=== PATIENT | female | born 1975 | race Asian ===

== ENCOUNTER → 2019-10-06 | Outpatient (CLI) | payer BC ==
[~2019-10-06] MED LIST: ESOM40CA PO
[2019-10-06 13:42] LABS: BASO # 0.1 x10^3/uL (0.0-0.2); BASO % 1 % (0-3); EOS # 0.3 x10^3/uL (0.0-0.7); EOS % 5 % (0-3); HEMATOCRIT 40.1 % (36.0-47.0); HEMOGLOBIN 13.9 g/dL (12.0-15.5); LYMPH # 1.6 x10^3/uL (1.0-4.8); LYMPH % 25 % (24-48); MEAN CORPUSCULAR HEMOGLOBIN 31 pg (25-35); MEAN CORPUSCULAR HGB CONC 35 g/dL (31-37); MEAN CORPUSCULAR VOLUME 88 fL (79-100); MONO # 0.4 x10^3/uL (0.0-1.1); MONO % 6 % (0-9); NEUT # 4.1 x10^3/uL (1.8-7.7); NEUT % 63 % (31-73); PLATELET COUNT 273 x10^3/uL (140-400); RED BLOOD COUNT 4.54 x10^6/uL (3.50-5.40); RED CELL DISTRIBUTION WIDTH 12.4 % (11.5-14.5); WHITE BLOOD COUNT 6.5 x10^3/uL (4.0-11.0)
[2019-10-06 13:45] LABS: BILIRUBIN,URINE NEGATIVE (NEG); CLARITY,URINE CLOUDY; COLOR,URINE YELLOW; NITRITE,URINE NEGATIVE (NEG); PH,URINE 7.5; PROTEIN,URINE NEGATIVE (NEG-TRACE); UROBILINOGEN,URINE 0.2 mg/dL (0.2 mg/dL)
[2019-10-06 14:00] LABS: AMORPHOUS SEDIMENT,UR PRESENT /HPF; BACTERIA,URINE 0 /HPF (0-FEW); WBC,URINE 0 /HPF (0-4)
[2019-10-06 14:10] LABS: ALBUMIN 3.3 g/dL (3.4-5.0); ALBUMIN/GLOBULIN RATIO 0.8 (1.0-1.7); CALCIUM 8.8 mg/dL (8.5-10.1); CREATININE 0.8 mg/dL (0.6-1.0); GFR 77.2; TOTAL BILIRUBIN 0.5 mg/dL (0.2-1.0); TOTAL PROTEIN 7.5 g/dL (6.4-8.2)
== END | disposition home or self-care (01) ==
LOC: SURGPAT 13:05
PROVIDERS: ATTEND Obstetrics & Gynecology
DX: Z01.818 Encounter for other preprocedural examination (principal); N81.10 Cystocele, unspecified
CPT/HCPCS: 36415; 80053; 81001; 85025

== ENCOUNTER 2019-10-12 06:48 | Observation (INO) | payer BC ==
[2019-10-12] VITALS (9 sets, daily range): BP systolic 99–111; BP diastolic 59–70
[~2019-10-12] VITALS: Ht 154.9 cm; Wt 61.2 kg
[2019-10-12] MEDS ORDERED: MORPHINE SULFATE 2 MG/ML VIAL. IV PRN ×2 (07:00→11:30)
[2019-10-12] MEDS ORDERED: IV RINGERS,LACTATED 1000ML 1,000 ML IV SCH (07:00)
[2019-10-12] MEDS ORDERED: fentaNYL PF VIAL 100 MCG/2 ML VIAL IV PRN ×2 (07:00)
[2019-10-12] MEDS ORDERED: HYDROmorphone 2 MG/ML VIAL IV PRN (07:00)
[2019-10-12] MEDS ORDERED: PROCHLORPERAZINE 10 MG/2 ML VIAL. IV PRN (07:00)
[2019-10-12] MEDS ORDERED: ONDANSETRON PF 4 MG/2 ML VIAL. IV PRN ×2 (07:00→11:30)
[2019-10-12] MEDS ORDERED: ESOM40CA PO (07:15)
[2019-10-12] MEDS ORDERED: SEVOFLURANE 61 TO 120 MINUTES. IH ONE (07:25)
[2019-10-12] MEDS ORDERED: PROPOFOL 20 ML IV ONE (07:25)
[2019-10-12] MEDS ORDERED: DEXAMETHASONE SOD PHOS 4 MG/ML VIAL ONE (07:25)
[2019-10-12] MEDS ORDERED: KETOROLAC 30 MG/ML VIAL. ONE (07:25)
[2019-10-12] MEDS ORDERED: GLYCOPYRROLATE 1 MG/5 ML VIAL. ONE ×2 (07:25→07:26)
[2019-10-12] MEDS ORDERED: ONDANSETRON PF 4 MG/2 ML VIAL. ONE (07:25)
[2019-10-12] MEDS ORDERED: LIDOCAINE 2% PF 5 ML VIAL. ONE (07:25)
[2019-10-12] MEDS ORDERED: ROCURONIUM 50 MG/5 ML VIAL. ONE (07:26)
[2019-10-12] MEDS ORDERED: NEOSTIGMINE METHYLSULFATE 5 MG/5 ML SYRINGE. ONE (07:26)
[2019-10-12] MEDS ORDERED: fentaNYL PF VIAL 100 MCG/2 ML VIAL ONE (07:32)
[2019-10-12] MEDS ORDERED: KETAMINE HCL IN NACL, ISO-OSM 50 MG/5 ML SYRINGE ONE (07:32)
[2019-10-12] MEDS ORDERED: BUPIVACAINE-EPI 0.25%-1:200000 MPF 30 ML VIAL. ONE ×3 (07:59→08:00)
[2019-10-12] MEDS ORDERED: ESTROGENS, CONJ VAGINAL CREAM 30GM TUBE. ONE (07:59)
[2019-10-12] MEDS ORDERED: INDIGOTINDISULFONATE SODIUM 40 MG/5 ML AMPUL. ONE (07:59)
[2019-10-12] MEDS ORDERED: ceFAZolin 2GM PREMIX 2 GM/50 ML BAG IV ONE (08:00)
[2019-10-12] MEDS ORDERED: PHENYLEPHRINE in 0.9% NACL PF 1 MG/10 ML SYRINGE. IV ONE (08:58)
--- NOTE | 2019-10-12 11:22 | PDOC ---
BRIEF OPERATIVE NOTE Date: Oct 12, 2019 Pre-Op Diagnosis menorrhagia, cystocele, Genuine urinary stress incontinence Post-Op Diagnosis same Procedure Performed LAVH/BSO/anterior repair and TVT abbrevo with cystoscopy Surgeon Dr. Carmelina Leon Office Inspector Jeffrey Mendosa Anesthesiologist Dr. Piedra Anesthesia Type: General Blood Loss 50cc IV Fluid 450cc Urine Output 430cc clear via june Specimens Obtained cervix, uterus, bilateral tubes and ovaries Findings enlarged fibroid uterus,normal bilateral tubes and ovaries, 2 degree cystocele, uretheral hypermobility Complications none Operative Note [id number] CARMELINA LEON MD Oct 12, 2019 11:22
[2019-10-12] MEDS ORDERED: HYDROcodone/APAP 5/325MG 1 TAB TABLET PO PRN (11:30)
[2019-10-12] MEDS ORDERED: CALCIUM CARBONATE 500 MG TAB.CHEW PO PRN (11:30)
[2019-10-12] MEDS ORDERED: ZOLPIDEM 5 MG TABLET. PO PRN (11:30)
[2019-10-12] MEDS ORDERED: diphenhydrAMINE HCL 25 MG CAPSULE PO PRN (11:30)
[2019-10-12] MEDS ORDERED: MAG HYDROX/ALUMINUM HYD/SIMETH 30 ML ORAL.SUSP PO PRN (11:30)
[2019-10-12] MEDS ORDERED: diphenhydrAMINE 50 MG/ML VIAL IV PRN (11:30)
[2019-10-12] MEDS ORDERED: SIMETHICONE 80 MG TAB.CHEW PO PRN (11:30)
[2019-10-12] MEDS ORDERED: oxyCODONE/APAP 5/325 1 TAB TABLET PO PRN (11:30)
[2019-10-12] MEDS ORDERED: LACTULOSE 20 GM/30 ML SOLUTION. PO PRN (11:30)
[2019-10-12] MEDS ORDERED: 0.9 % SODIUM CHLORIDE 10 ML DISP.SYRIN. IV PRN (11:30)
[2019-10-12] MEDS ORDERED: NALOXONE 0.4 MG/ML VIAL. IV PRN (11:30)
[2019-10-12] MEDS ORDERED: MAGNESIUM HYDROXIDE 2,400 MG/30 ML ORAL.SUSP. PO PRN (11:30)
--- NOTE | 2019-10-12 12:45 | OP ---
DATE OF SURGERY: 10/12/2019 PREOPERATIVE DIAGNOSES: Menorrhagia, cystocele, genuine stress urinary incontinence with urethral hypermobility. POSTOPERATIVE DIAGNOSES: Menorrhagia, cystocele, genuine stress urinary incontinence with urethral hypermobility. PROCEDURE: Laparoscopic-assisted vaginal hysterectomy, bilateral salpingo-oophorectomy, anterior repair and TVT-Abbrevo with cystoscopy. SURGEON: Andi Leon MD SAFETY ADMINISTRATOR: ERIK Raphael ANESTHESIOLOGIST: Dr. Cecilio Piedra. ANESTHESIA: General. ESTIMATED BLOOD LOSS: 50 mL. URINE OUTPUT: 430 mL clear via Cleary catheter. FLUIDS: 450 mL of Crystalloid. SPECIMENS: Cervix, uterus, bilateral tubes and ovaries. FINDINGS: An enlarged fibroid uterus, normal bilateral tubes and ovaries. Second-degree cystocele with urethral hypermobility. COMPLICATIONS: None. DESCRIPTION OF PROCEDURE: This patient was taken to the operating room where general anesthesia was placed. The patient was placed in the dorsal lithotomy position in [facility]. The patient's abdomen and vagina were prepped and draped in the normal sterile fashion and a Cleary catheter had been inserted under sterile technique. Upon my arrival, once everyone agreed on the patient procedure and she had received her preoperative antibiotics, we went ahead and started the case. A bivalve speculum was placed in the patient's vagina. A single-tooth tenaculum was used to grasp the anterior lip of the cervix. A 10-12 mL of 0.25% Marcaine with epinephrine was used to circumferentially inject around the cervix for both hemodissection and hemostatic purposes later. The Valtchev uterine manipulator again was then placed into the cervical os, locked on the single-tooth tenaculum and the bivalve speculum was then removed. Top gloves were discarded and changed. Attention was then turned to the abdomen where a small supraumbilical skin incision was made with the scalpel. A curved Fara was used to dissect through the subcuticular layer to the fascia. The 5 mm Visiport was used to directly enter the abdominal cavity. Opening patient pressure was 3-4 mmHg. Carbon dioxide gas was used to then appropriately insufflate the abdominal cavity to maintain a pressure of 15 mmHg. The right and left lower quadrant ports were placed under direct visualization, transilluminating the abdominal wall, finding an area clear of any vasculature, making a small incision and watching it come in under direct visualization. The cuff on the trocar was then insufflated with 4-5 mL of air via the syringe under the port, both of them. The camera was then moved laterally to look at the umbilical port and it was clear in a great spot and 4-5 mL of air was placed in this trocar port as well. At this point, I looked around first the bowel and the omentum, they were grossly normal. The appendix was visualized. The right upper quadrant liver area was visualized and at this point, the left tube and ovary were identified and elevated. The ureter could be seen coursing low in the pelvis, well below where we were going to be and we could watch it peristalse. So, staying high underneath the ovary as she wished everything out with the family history of ovarian cancer, we went ahead and crossed the infundibulopelvic ligament on the left with the LigaSure, cauterizing and cutting, going over towards the uterus, hugging under the ovary and tube, crossing the round ligament just on the other side of the cornua and going down, and once through and through getting the blood supply on the round and freeing it up. This was done exactly the same on the right side, elevating the right tube and ovary, identifying the ureter, coursing low in the pelvis, watching it peristalse, well out of the way of where we needed it to be, going high on the ovary again crossing the infundibulopelvic ligament, cauterizing and cutting with the LigaSure, staying under the right tube and ovary, crossing the right round ligament. Once this was done, the uterus was pushed posterior leg down, but cephalad towards the head of the bed, and the [place] was used to elevate the bladder flap and the monopolar hook was used to sharply incise and create the bladder flap and then gently pulling it down. So, once the bladder was down, the uterine vessels were obtained on both sides hugging the uterus and going through the cardinal and broad ligaments down to the uterosacral on the left side and then the right side, staying inside that pedicle and hugging the cervix and taking small bites down to the uterosacral on my side as well. This completely skeletonized the uterus. There were no adhesions, it was completely free, it was blanched. So at this point, all instruments were removed and attention was turned vaginally. A weighted speculum was placed in the patient's vagina. The single tooth and Valtchev were removed. Thyroid Kim clamps were placed on the anterior and posterior lips of the cervix respectively. A scalpel was used to make a circumferential incision in the cervix. The posterior cul-de-sac was sharply entered with curved Webb scissors and a #0 Vicryl stitch was used to secure the posterior peritoneum to the vaginal cuff, securing it to the vaginal cuff, tagging it with a straight Fara clamp and cutting and passing the needle off. The short weighted vaginal speculum was removed and replaced with the long weighted Mel speculum in the posterior cul-de-sac. Once this was done, the anterior bladder peritoneum was gently pushed up with the Yankauer and it was skeletonized sharply and then an open Ray-Sacha 4 x 4 was used to gently push up on the anterior bladder peritoneum. It slid immediately up and the anterior cul-de-sac was digitally and bluntly entered. The Ray-Sacha was removed and the curved Oleg was placed in the anterior cul-de-sac. At this point, curved Stephane clamps x 2 were placed on the patient's left uterosacral ligament where they were doubly clamped with curved Stephane's, cut with curved Webb scissors and suture ligated x 2 with #0 Vicryl. The second one was taken through the vaginal cuff, securing uterosacral ligament to the vaginal cuff, tagged with a straight Fara clamp and the needle was cut and passed off. This was done exactly the same on the right side, double clamping the uterosacrals with curved Heaneys, cutting with curved Webb scissors, suture ligating x 2 with 0 Vicryl and taking the second one through the vaginal cuff, tagging it with a straight Fara clamp and cutting and passing the needle off. The remaining pedicles on both sides were delineated with the curved mixture and the vaginal LigaSure was used to cauterize and cut this. The cervix, uterus, bilateral tubes and ovaries were delivered in total and passed off for permanent pathology. A sponge stick was used to examine the pedicles. There was initially some slight oozing on the right side that was easily obtained by pulling it out with Russians and getting behind it and cauterizing the uterosacral ligament with the vaginal LigaSure. Once this was done and everything was hemostatic, the long Allis was used to grasp the anterior bladder peritoneum. The long Mel speculum was taken out of the posterior cul-de-sac and replaced with the short weighted vaginal speculum. Once this was done, all pedicles were hemostatic and dry. A sponge stick was used to push up the bowel. A 2-0 Vicryl was taken through the anterior bladder peritoneum, left uterosacral ligament, posterior peritoneum and right uterosacral ligament thus closing the peritoneum in a pursestring like fashion and of course removing the sponge stick before tying it. Once this was done, the right and left uterosacral tags were clipped. Allis clamps were placed at 10 and 2 and a dilute solution of 3 parts injectable saline to 1 part local 0.25% Marcaine with epinephrine was used, 50 mL was used to inject the suburethral and the anterior defect. It was decided to go ahead and perform the cystocele as it did kind of push down and was a second-degree at least. So at this point, Allis clamps were placed. It was injected with a local in the suburethral and even laterally where the sling would go. A marking pen was obtained to makenzie the urethral area, 2 cm up and out, for the expected sling location as well. Once this was done, a #15 blade was used to make a small vertical incision in the anterior defect and Allis clamps were placed on this and the Metzenbaum scissors were used to open up the anterior defect and then sharply and bluntly, the Metzenbaums and a Ray-Sacha were used to gently reduce the bladder off the anterior vaginal mucosa on both sides. Once this was done, 4-5 interrupted sutures of 2-0 Vicryl was used to reduce the defect. They were placed and tagged and then tied in a reversed order using the backend of a pickup, the blunt end, to gently push up the defect and push them together getting the vaginal mucosa back together over the defect. Once this was done, the anterior vaginal mucosa was trimmed with Metzenbaum scissors and a full length 2-0 Vicryl was used to close the cystocele defect and the vaginal cuff in #1 running locked stitch and tied to that posterior cuff tag. Once this was done and it was completely hemostatic, Allis was placed 1 cm below the urethra again. It had previously been injected with that dilute solution of the 1 part local to 3 parts injectable saline and a small vertical incision was placed here with Allis clamps on either side. The Metzenbaums were used to dissect laterally just kind of putting them in and opening it up, not cutting, but just gently opening up out to the obturator foramen. Once this was done on both sides and the sling was opened, the wing guide applicator was placed on the right side and placing it in and around the obturator and when it came out on the skin, a small incision with the scalpel was used to make it and it popped through. A curved Fara was used to grasp the white sling coming through. The wing guide applicator was removed and the sling was removed from that handheld test driver. The test driver was removed and this was done exactly the same on the left side. Once it was through the sling, was not completely tightened, but taken through making sure there was no buttonholing at all, which there was not vaginally. Deflating the Cleary bulb and a cystoscopy was performed. Approximately 400 mL of saline was placed in the bladder. There was no bleeding, no trauma. The bladder bulb was seen, it insufflated great. There was no sling in the vagina. Both urethral openings could be seen at the trigone. So once this was done, the cystoscopy was ended. The Cleary was placed back in and the balloon was placed back up to drain the bladder. The white sling guides were cut off the plastic sheath from the handheld drivers. Once I assured it was in the right spot and Allis clamps were placed over the plastic on both sides there, a Metzenbaum scissors were used to place below the urethra before the sling, to make sure it was not too tight over the urethra when we pulled them and tighten them. Once it was tightened and the sling was straight and the mesh was straight over the Metzenbaum scissors, the Prolene was removed as well and then it was removed. The blue Prolene suture was in the middle and it was also clipped from the sling. FloSeal was placed over the sling on both sides out laterally to the obturator foramen. The left groin opening was closed with Dermabond. The right one wanted to ooze a little bit, so I used the Monocryl in a subcutaneous to close it with excellent results. The suburethral over the sling was closed in a 2-layer closure, first with a Monocryl in a subcutaneous and then with a 2-0 Vicryl in running over the top of it. Everything was hemostatic vaginally and everything was double checked. So, at this point, all instruments had been correct, we counted x 2 by OR personnel and everything was done vaginally. So, all gloves were discarded and changed and attention was turned back above for a second look. At this point, the patient was placed back in Trendelenburg position. Gas was reinsufflated. The scope was placed back in. Copious irrigation revealed hemostasis. Right and left pericolic gutters were clear. The cuff had some clots on it that was easily rinsed off and cleaned out that remained hemostatic. Tisseel was placed over the cuff with excellent results. The right and left lower quadrant ports, the balloon was deflated on both the trocars. These were removed under direct visualization. They were hemostatic. Gas was taken out of the umbilical trocar as well and the gas was removed from this before removing it and then it was removed as well. All 3 port sites were closed with 4-0 nylon at the skin and injected with local, 10-12 mL of 0.25% Marcaine with epinephrine. The patient was awakened from anesthesia and brought to recovery room in stable condition. ANDI LEON MD DR: RUBIA/montana JOB#: [id number] / [id number]
[2019-10-12] MEDS ORDERED: IBUPROFEN 200 MG TABLET. PO PRN (21:15)
[2019-10-13 00:33] VITALS: BP 93/56
[2019-10-13 06:15] VITALS: BP 104/53
[2019-10-13] MEDS ORDERED: PANTOPRAZOLE 40 MG TABLET.DR. PO SCH (07:30)
[2019-10-13 07:52] LABS: CALCIUM 8.6 mg/dL (8.5-10.1); CREATININE 0.9 mg/dL (0.6-1.0); GFR 67.4; POTASSIUM 3.8 mmol/L (3.5-5.1)
[2019-10-13 08:00] VITALS: BP 102/60
--- NOTE | 2019-10-13 08:55 | PDOC ---
SURGICAL PROGRESS NOTE Subjective Doing well without complaints. Scant VB. Tolerating regular diet without n/v. +flatus, voiding without catheter. only complaint was mild hip pain which ibuprofen and heating pad helped. wants to go home Vital Signs Vital Signs Date Time Temp Pulse Resp B/P (MAP) Pulse Ox O2 Delivery O2 Flow Rate FiO2 10/13/19 06:15 98.1 68 16 104/53 (70) 96 Room Air 98.1 10/12/19 11:29 8 I&O Intake and Output 10/13/19 07:00 Intake Total 770 ml Output Total 3055 ml Balance -2285 ml Intake Oral 420 ml IV Total 350 ml Output Urine Total 3005 ml Estimated Blood Loss 50 ml PATIENT HAS A RIDDLE: No General: Alert, Oriented X3, Cooperative, No acute distress HEENT: Atraumatic Heart: Regular rate Abdomen: Normal bowel sounds, Soft, No tenderness, Other (all port sites c/d/i) Extremities: No clubbing, No cyanosis, No edema, No tenderness/swelling Skin: No rashes, No breakdown, No significant lesion Neuro: Normal speech Psych/Mental Status: Mental status NL, Mood NL Labs Laboratory Tests Test 10/12/19 07:06 10/13/19 07:15 Bedside Urine HCG, Qualitative Hcg negative (Negative) Hematocrit 33.9 % (36.0-47.0) Sodium Level 139 mmol/L (136-145) Potassium Level 3.8 mmol/L (3.5-5.1) Chloride Level 104 mmol/L (98-107) Carbon Dioxide Level 27 mmol/L (21-32) Anion Gap 8 (6-14) Blood Urea Nitrogen 15 mg/dL (7-20) Creatinine 0.9 mg/dL (0.6-1.0) Estimated GFR (Cockcroft-Gault) 67.4 Glucose Level 118 mg/dL (70-99) Calcium Level 8.6 mg/dL (8.5-10.1) Laboratory Tests Test 10/13/19 07:15 Hematocrit 33.9 % (36.0-47.0) Sodium Level 139 mmol/L (136-145) Potassium Level 3.8 mmol/L (3.5-5.1) Chloride Level 104 mmol/L (98-107) Carbon Dioxide Level 27 mmol/L (21-32) Anion Gap 8 (6-14) Blood Urea Nitrogen 15 mg/dL (7-20) Creatinine 0.9 mg/dL (0.6-1.0) Estimated GFR (Cockcroft-Gault) 67.4 Glucose Level 118 mg/dL (70-99) Calcium Level 8.6 mg/dL (8.5-10.1) I have reviewed the following labs, vitals, nursing Cardiovascular: No pertinent hx Pulmonary: No pertinent hx GI: No pertinent hx Heme/Onc: No pertinent hx Psych: No pertinent hx Infectious disease: No pertinent hx Renal/: No pertinent hx Endocrine: No pertinent hx Assessment/Plan POD#1 s/p LAVH/BSO/anterior repair/TVT abbrevo with cystoscopy Routine po care d/c to home later today NPV x 6 weeks Light/limited activity x 2 weeks already has percocet at home OK for OTC ibuprofen as needed also (600 q 6hrs, prn) NO driving while on narcotic pain meds Call or return sooner for any other questions or concerns not limited to but including pain unrelieved with pain meds, increased or unexplained vaginal bleeding or T>100.4 ANDI TAPIA MD Oct 13, 2019 08:55
--- NOTE | 2019-10-13 08:58 | PDOC3 ---
Discharge Summary Visit Information Date of Admission: Oct 12, 2019 Date of Discharge: Oct 13, 2019 Final Diagnosis menorrhagia, GSUI, cystocele Brief Hospital Course Allergies Allergies Coded Allergies Type Severity Reaction Last Updated Verified No Known Drug Allergies 10/12/19 No Vital Signs Vital Signs Date Time Temp Pulse Resp B/P (MAP) Pulse Ox O2 Delivery O2 Flow Rate FiO2 10/13/19 06:15 98.1 68 16 104/53 (70) 96 Room Air 98.1 10/12/19 11:29 8 Lab Results Laboratory Tests Test 10/12/19 07:06 10/13/19 07:15 Bedside Urine HCG, Qualitative Hcg negative (Negative) Hematocrit 33.9 % (36.0-47.0) Sodium Level 139 mmol/L (136-145) Potassium Level 3.8 mmol/L (3.5-5.1) Chloride Level 104 mmol/L (98-107) Carbon Dioxide Level 27 mmol/L (21-32) Anion Gap 8 (6-14) Blood Urea Nitrogen 15 mg/dL (7-20) Creatinine 0.9 mg/dL (0.6-1.0) Estimated GFR (Cockcroft-Gault) 67.4 Glucose Level 118 mg/dL (70-99) Calcium Level 8.6 mg/dL (8.5-10.1) Laboratory Tests Test 10/13/19 07:15 Hematocrit 33.9 % (36.0-47.0) Sodium Level 139 mmol/L (136-145) Potassium Level 3.8 mmol/L (3.5-5.1) Chloride Level 104 mmol/L (98-107) Carbon Dioxide Level 27 mmol/L (21-32) Anion Gap 8 (6-14) Blood Urea Nitrogen 15 mg/dL (7-20) Creatinine 0.9 mg/dL (0.6-1.0) Estimated GFR (Cockcroft-Gault) 67.4 Glucose Level 118 mg/dL (70-99) Calcium Level 8.6 mg/dL (8.5-10.1) Brief Hospital Course Ms. Hewitt is a 44 old female who presented with menorrhagia, familyhistory ovarian cancer, cystocele, GSUI. She underwent LAVH/BSO/anterior repair and TVT abbrevo with cysto yesterday without complications. She has had an unremarkable postoperative course. She is voiding without catheter, tolerating regular diet and passing flatus. She is ambulating well, scant VB and wants to go home Assessment Assessment POD#1 s/p LAVH/BSO/anterior repair/TVT abbrevo with cystoscopy Routine po care d/c to home later today NPV x 6 weeks Light/limited activity x 2 weeks already has percocet at home OK for OTC ibuprofen as needed also (600 q 6hrs, prn) NO driving while on narcotic pain meds Call or return sooner for any other questions or concerns not limited to but including pain unrelieved with pain meds, increased or unexplained vaginal bleeding or T>100.4 Discharge Information Condition at Discharge: Stable Follow Up: Weeks Disposition/Orders: D/C to Home Scheduled Esomeprazole Magnesium (Nexium Capsule) 40 Mg Capsule., 40 MG PO DAILYAC for GERD, #30 Ref 0 (Reported) Entered as Reported by: RIKKI KIDD on 10/12/19 0715 Last Taken: Unknown Dose on 10/12/19 0500 Last Action: Converted on 10/12/19 0835 by ANDI TAPIA Patient Instructions Patient Instructions POD#1 s/p LAVH/BSO/anterior repair/TVT abbrevo with cystoscopy Routine po care d/c to home later today NPV x 6 weeks Light/limited activity x 2 weeks already has percocet at home OK for OTC ibuprofen as needed also (600 q 6hrs, prn) NO driving while on narcotic pain meds Call or return sooner for any other questions or concerns not limited to but including pain unrelieved with pain meds, increased or unexplained vaginal bleeding or T>100.4 Hemodynamically unstable?: No Operative site or wounds?: Yes Poss blood loss?: Yes Persistent Pain & Nausea?: No ANDI TAPIA MD Oct 13, 2019 08:57
[2019-10-13 10:30] VITALS: BP 114/72
--- NOTE | 2019-10-13 10:43 | NUR ---
Discharge Note: DAVIAN BAIRES Discharge instructions and discharge home medications reviewed with Patient and a copy given. All questions have been answered and understanding verbalized. Follow up appointments reviewed and understanding verbalized. The following instructions and handouts were given: BSO, Hysterectomy Information and care after, TVT Discontinued lines and drains: Peripheral IV in left hand removed. Catheter intact. Bandage applied. Patient discharged to home with self-care via ambulation to private vehicle. Pt. at bedside at time of DC.
--- NOTE | 2019-10-13 17:06 | PATHOLOGY ---
[facility] Accession Number: [id number] . 01 Material submitted: . uterus - CERVIX,UTERUS, BILATERAL FALLOPIAN TUBES AND BILATERAL OVARIES . 01 Clinical history: . Stress incontinence; menorrhagia; family history of ovarian cancer . 02 Diagnosis: Uterus and attached bilateral fallopian tubes and ovaries, laparoscopic assisted vaginal hysterectomy with bilateral salpingo-oophorectomy: - Leiomyoma, uterine corpus, intramural, measuring 1.9 cm in greatest dimension. - Chronic cervicitis with focal squamous metaplasia. - Nabothian cysts, cervix. - Proliferative endometrium. - Congestion of bilateral fallopian tubes with focal subserosal endosalpingiosis. - Cystic follicles and regressing hemorrhagic luteinized cyst of left ovary. - Cystic follicles and small simple serous cysts of right ovary. LBQ 10/13/2019 1554 Local . 02 Comment: There is no atypia or evidence of malignancy. (JPM/db; 10/13/2019) . 02 Electronically signed: . Marcello Reyes MD, Pathologist NPI- [id number] . 01 Gross description: . The specimen is received in formalin labeled " Samantha Hewitt, cervix, uterus, bilateral fallopian tubes, bilateral ovaries". Received is a 142 g, 9.9 x 7.1 x 4.5 cm uterus with attached cervix and attached adnexa, weighing 12 and 7 grams, left and right, respectively. The uterine serosa is pink-waterman and smooth in appearance. The 1.8 cm cervical os is surrounded by pale waterman, smooth to slightly wrinkled ectocervical mucosa. The uterus is oriented using the peritoneal reflection and the anterior paracervical margin is inked black. The uterus is opened laterally to reveal a pink-waterman and corrugated to slightly cystic endocervical canal measuring 3.1 cm in length. The endometrial cavity is triangular measuring 5.3 cm in length by 3.0 cm in width. The endometrium is pale waterman, glistening to slightly hemorrhagic in appearance and measures 0.1 cm in thickness. Serial sectioning reveals a waterman-pink, trabeculated myometrium measuring up to 2.8 cm in thickness displaying two intramural fibroids measuring 0.2 and 1.9 cm. . The left adnexa consists of a fimbriated fallopian tube measuring 5.3 cm in length by up to 0.5 cm in diameter attached to a 3.5 x 1.9 x 1.8 cm ovary. Sectioning through the fallopian tube reveals a patent lumen and the fallopian tube appears grossly unremarkable. Sectioning through the ovary reveals multiple cystic structures ranging in size from 0.3 to 0.8 cm filled with blood-tinged fluid. The remaining cut surfaces display pale waterman, normal ovarian stroma. . The right adnexa consists of a fimbriated fallopian tube measuring 5.8 cm in length by up to 0.5 cm in diameter attached to a 3.4 x 1.4 x 1.1 cm ovary. Sectioning through the fallopian tube reveals a pinpoint to patent lumen and the fallopian tube appears grossly unremarkable. Sectioning through the ovary reveals a unilocular cystic structure measuring 1.0 cm filled with blood-tinged fluid. The remaining cut surfaces display pale waterman, normal ovarian stroma. The specimen is submitted representatively as follows: . A1 12:00 cervix A2 6:00 cervix A3 anterior endomyometrium A4 posterior endomyometrium A5 client account representative sections of fibroids A6 left adnexa A7 right adnexa. (CAA; 10/12/2019) [facility] 10/12/2019 1543 Local . 02 Pathologist provided ICD-10: D25.9, N88.8, N94.89, N83.202, N83.201 . 02 CPT . 398440 Specimen Comment: A courtesy copy of this report has been sent to [phone] Specimen Comment: Report sent to Performed at: [address], [place] [id number] MD Solomon Mayen MD Phone: [phone] Performed at: 02 [facility] [address] [place], [place] [id number] MD Marcello Reyes MD Phone: [phone]
== END 2019-10-13 10:55 | disposition home or self-care (01) ==
LOC: SURG 06:48 → EDSTATUS 08:30 → EDUNIT# 08:30 → 3 NORTH 11:20
PROVIDERS: ADMIT Obstetrics & Gynecology; ATTEND Obstetrics & Gynecology
DX: N92.0 Excessive and frequent menstruation with regular cycle (principal); N81.10 Cystocele, unspecified; N39.3 Stress incontinence (female) (male); N36.41 Hypermobility of urethra
CPT/HCPCS: 36415; 58552; 80048; 81025; 85014; 86850; 86900; 86901; A7015; C1760; G0378; G0379; J0696; J1100; J1885; J2001; J2370; J2405; J2704; J2710; J3490; J7030; J3010; C1771